=== PATIENT | male | born 1955 | race Caucasian/White ===

== ENCOUNTER 2016-05-06 08:57 | Inpatient (IN) | payer BC, OTHER ==
[2016-05-05 09:39] VITALS: BMI 34.2
--- NOTE | 2016-05-06 11:51 | HP ---
Admitting History and Physical - Admission Chief Complaint: Morbid obesity History of Present Illness: 61 male presents for bariatric surgery History Source: Patient - Past Medical History Pulmonary: Yes: Sleep Apnea Endocrine: Yes: Diabetes Mellitus - Past Surgical History Additional Past Surgical History: Mastoid surgery - Smoking History Smoking history: Current every day smoker Have you smoked in the past 12 months: Yes - Alcohol/Substance Use Hx Alcohol Use: Yes (WEEKENDS) Home Medications - Allergies Allergies/Adverse Reactions: Allergies Allergy/AdvReac Type Severity Reaction Status Date / Time Penicillins Allergy "MOUTH AND Verified 05/05/16 09:40 TONGUE SWELLING" - Home Medications Home Medications: Ambulatory Orders Alfuzosin HCl [Alfuzosin HCl ER] 10 mg PO DAILY 09/22/15 Levofloxacin [Levaquin] 500 mg PO DAILY 05/05/16 Azelastine/Fluticasone [Dymista Nasal [place]] 23 gm NS PRN 05/06/16 Cetirizine HCl 10 mg PO DAILY 05/06/16 Famotidine [Pepcid] 20 mg PO BID #60 tablet 05/06/16 Oxycodone HCl/Acetaminophen [Percocet 5-325 mg Tablet] 1 - 2 tab PO Q6H #28 tab MDD 4 05/06/16 Family Disease History - Family Disease History Family History: Unremarkable Review of Systems - Review of Systems Constitutional: denies: Chills, Fever Neck: reports: No Symptoms Cardiovascular: reports: No Symptoms Respiratory: reports: No Symptoms Gastrointestinal: reports: No Symptoms Genitourinary: reports: No Symptoms Neurological: reports: No Symptoms Pain Intensity: 0 Physical Examination Vital Signs: Vital Signs Temperature 97.8 F 05/06/16 09:32 Pulse Rate 89 05/06/16 09:32 Respiratory Rate 18 05/06/16 09:32 Blood Pressure 140/84 05/06/16 09:32 O2 Sat by Pulse Oximetry (%) 97 05/06/16 09:32 Constitutional: Yes: Calm Neck: Yes: Supple Cardiovascular: Yes: Regular Rate and Rhythm Respiratory: Yes: CTA Bilaterally Gastrointestinal: Yes: Soft, Abdomen, Obese. No: Tenderness Neurological: Yes: Alert, Oriented Problem List - Problems (1) Morbid (severe) obesity due to excess calories Code(s): E66.01 - MORBID (SEVERE) OBESITY DUE TO EXCESS CALORIES Assessment/Plan Robotic laparoscopic possible open vertical sleeve gastrectomy
[2016-05-06] MEDS ORDERED: ROCURONIUM BROMIDE 50 MG/5 ML VIAL ONE ×2 (12:11→12:54)
[2016-05-06] MEDS ORDERED: SUCCINYLCHOLINE CHLORIDE 200 MG/10 ML VIAL ONE (12:11)
[2016-05-06] MEDS ORDERED: MIDAZOLAM HCL 2 MG/2 ML SINGLE DOSE VIAL ONE (12:11)
[2016-05-06] MEDS ORDERED: PROPOFOL 20 ML ONE (12:11)
[2016-05-06] MEDS ORDERED: BUPIVACAINE HCL/PF 0.5% (5MG/ML) 10 ML VIAL ONE ×2 (12:18→13:59)
[2016-05-06] MEDS ORDERED: CLINDAMYCIN PHOSPHATE 900 MG/6 ML VIAL IVPB ONE (12:50)
[2016-05-06] MEDS ORDERED: CLINDAMYCIN PHOSPHATE 600 MG/4 ML VIAL ONE (13:05)
[2016-05-06] MEDS ORDERED: PHENYLEPHRINE HCL 10 MG/1 ML SINGLE DOSE VIAL ONE (13:29)
[2016-05-06] MEDS ORDERED: SODIUM CHLORIDE 0.9% P/F 10 ML VIAL IJ ONE (13:30)
[2016-05-06] MEDS ORDERED: ePHEDrine SULFATE 50 MG/1 ML AMPULE ONE (13:51)
[2016-05-06] MEDS ORDERED: HYDROmorphone HCL/PF 1 MG/ML VIAL (FOR PYXIS CHARGING ONLY) ONE (14:14)
[2016-05-06] MEDS ORDERED: HYDROmorphone HCL CARPU-JECT 2 MG/1 ML DISP.SYRIN ONE ×2 (15:18→16:53)
[2016-05-06] MEDS: HYDROmorphone HCL CARPU-JECT 1 MG/1 ML DISP.SYRIN IVPUSH PRN ×4 (15:20→15:50)
[2016-05-06] MEDS ORDERED: ACETAMINOPHEN INJECTION 100 ML IVPB ONE (15:52)
[2016-05-06] MEDS ORDERED: METOCLOPRAMIDE HCL INJECTION 10 MG/2 ML VIAL ONE (15:52)
[2016-05-06 15:54] LABS: MCH 31.1 pg (25.7-33.7); MCHC 34.2 g/dl (32.0-35.9); MEAN CELL VOLUME 90.9 fl (80-96); MEAN PLT VOLUME 8.8 fl (7.5-11.1); PLATELET COUNT 187 K/MM3 (134-434); RDW 13.4 % (11.9-15.9); WHITE BLOOD COUNT 10.6 K/mm3 (4.0-10.0)
[2016-05-06] MEDS: ACETAMINOPHEN 1000 MG/100 ML VIAL (NON FORMULARY) IVPB SCH ×2 (16:00→22:01)
[2016-05-06] MEDS: METOCLOPRAMIDE HCL INJECTION 10 MG/2 ML VIAL IVPB SCH ×2 (16:30→20:47)
[2016-05-06 16:38] LABS: ALBUMIN 3.6 g/dl (3.4-5.0); ALK PHOS 59 U/L (45-117); ANION GAP 9 (8-16); BILIRUBIN,TOTAL 0.6 mg/dL (0.2-1.0); CALCIUM 8.8 mg/dL (8.5-10.1); CO2 29 mmol/L (21-32); CREATININE 1.1 mg/dL (0.7-1.3); GLUCOSE,RANDOM 129 mg/dL (74-106); SGOT/AST 69 U/L (15-37); SGPT/ALT 93 U/L (12-78); TOT PROT 6.6 g/dl (6.4-8.2)
[2016-05-06] MEDS: HYDROmorphone HCL CARPU-JECT 1 MG/1 ML DISP.SYRIN IVPB PRN (17:00)
[2016-05-06] MEDS: SODIUM CHLORIDE 1,000 ML IV SCH (18:21)
[2016-05-06] MEDS: ONDANSETRON 4 MG/2 ML VIAL IVPB SCH ×2 (19:28→23:12)
[2016-05-06] MEDS: FAMOTIDINE 20 MG/50 ML IVPB 50 ML IVPB SCH (22:24)
[2016-05-06] MEDS: ENOXAPARIN NA (PORCINE) 40 MG/0.4 ML DISP.SYRIN SQ SCH (22:26)
[2016-05-07] MEDS: HYDROmorphone HCL CARPU-JECT 1 MG/1 ML DISP.SYRIN IVPB PRN ×3 (00:14→10:04)
[2016-05-07] MEDS: METOCLOPRAMIDE HCL INJECTION 10 MG/2 ML VIAL IVPB SCH ×3 (03:09→14:28)
[2016-05-07] MEDS: ONDANSETRON 4 MG/2 ML VIAL IVPB SCH ×4 (03:17→14:28)
[2016-05-07] MEDS: ACETAMINOPHEN 1000 MG/100 ML VIAL (NON FORMULARY) IVPB SCH ×2 (03:43→11:03)
[2016-05-07] MEDS: SODIUM CHLORIDE 1,000 ML IV SCH ×2 (05:00→17:11)
--- NOTE | 2016-05-07 07:56 | PN ---
Progress Note, Physician Chief Complaint: Pt. pain controlled, resting comforatbly. No GA complaints. - Current Medication List Current Medications: Active Medications Acetaminophen (Ofirmev Injection -) 1,000 mg IVPB Q6H-IV ASHLYN Stop: 05/07/16 09:01 Last Admin: 05/07/16 03:43 Dose: Not Given Enoxaparin Sodium (Lovenox -) 40 mg SQ BID ASHLYN Last Admin: 05/06/16 22:26 Dose: 40 mg Hydromorphone HCl (Dilaudid Injection -) 1 mg IVPB Q3H PRN PRN Reason: PAIN Last Admin: 05/07/16 06:34 Dose: 1 mg Hydromorphone HCl (Dilaudid Injection -) 0.5 mg IVPUSH [id number] PRN PRN Reason: PAIN Stop: 05/09/16 15:20 Last Admin: 05/06/16 15:50 Dose: 0.5 mg Famotidine/Sodium Chloride (Pepcid 20 Mg Premixed Ivpb -) 50 mls @ 100 mls/hr IVPB BID [facility] Last Admin: 05/06/16 22:24 Dose: 100 mls/hr Sodium Chloride (Normal Saline -) 1,000 mls @ 150 mls/hr IV ASDIR [facility] Last Admin: 05/07/16 05:00 Dose: 150 mls/hr Metoclopramide HCl (Reglan Injection -) 10 mg IVPB Q6H-IV ASHLYN Last Admin: 05/07/16 03:09 Dose: 10 mg Ondansetron HCl (Zofran Injection) 4 mg IVPB Q4H [facility] Last Admin: 05/07/16 06:38 Dose: 4 mg - Objective Vital Signs: Vital Signs Temperature 97.8 F 05/07/16 06:00 Pulse Rate 82 05/07/16 06:00 Respiratory Rate 20 05/07/16 06:00 Blood Pressure 157/94 05/07/16 06:00 O2 Sat by Pulse Oximetry (%) 97 05/06/16 21:00 Constitutional: Yes: Well Nourished, No Distress, Calm Musculoskeletal: Yes: WNL Neurological: Yes: WNL, Alert, Oriented ...Motor Strength: WNL Assessment/Plan POD#1 s/p Robotic Gastric Sleeve under GA. Doing well. D/C from anesthesia care.
[2016-05-07 08:16] LABS: MCH 31.2 pg (25.7-33.7); MCHC 34.1 g/dl (32.0-35.9); MEAN CELL VOLUME 91.5 fl (80-96); MEAN PLT VOLUME 8.8 fl (7.5-11.1); PLATELET COUNT 161 K/MM3 (134-434); RDW 13.5 % (11.9-15.9)
[2016-05-07 08:44] LABS: ALBUMIN 3.4 g/dl (3.4-5.0); ALK PHOS 52 U/L (45-117); ANION GAP 11 (8-16); BILIRUBIN,TOTAL 0.9 mg/dL (0.2-1.0); CALCIUM 8.2 mg/dL (8.5-10.1); CO2 25 mmol/L (21-32); GLUCOSE,RANDOM 100 mg/dL (74-106); SGOT/AST 71 U/L (15-37); SGPT/ALT 90 U/L (12-78); TOT PROT 6.5 g/dl (6.4-8.2)
--- NOTE | 2016-05-07 08:50 | SPEC ---
DATE OF OPERATION: 05/06/2016 SURGEON: Fox Dyer MD LANDING SIGNAL OFFICER: Ryan Soares MD PREOPERATIVE DIAGNOSES: Morbid obesity, sleep apnea, borderline diabetes. POSTOPERATIVE DIAGNOSES: Morbid obesity, sleep apnea, borderline diabetes. PROCEDURE: Robotic vertical sleeve gastrectomy. SPECIMEN: Greater curvature of the stomach. ESTIMATED BLOOD LOSS: 30 mL. DRAINS: None. ANESTHESIA: GET. REASON FOR PROCEDURE: This is a 61-year-old gentleman who presented to the office for evaluation with bariatric surgery. After discussing different options, he decided to proceed with a robotic laparoscopic, possible open vertical sleeve gastrectomy. RISKS AND BENEFITS: After describing the different options for weight loss management, the patient decided to proceed with a laparoscopic, possible open vertical sleeve gastrectomy. The patient was seen by the respective subspecialties and cleared for surgery. The risks and benefits of the procedure were explained. These included bleeding, infection, hernia, CT, DVT, PE, injury to surrounding structures including the liver, colon, bowel, spleen, esophagus, vessel injury, nerve injury, weight regain, gastric leak, staple line leak, sleeve leak, obstruction, vitamin deficiency, hair loss, and as some of the possible complications. The patient understood and signed informed consent. DESCRIPTION OF PROCEDURE: The patient was placed supine on the operating room table. The patient underwent general endotracheal intubation. A Jade catheter was inserted. The arms were brought out at 90 degrees and secured. A foot board was placed, and the legs were secured laterally with padding. The abdomen was prepped and draped in the usual sterile fashion. A timeout was performed. An incision was made in the left upper quadrant and a Veress needle inserted. Pneumoperitoneum was established. Subsequently, the Veress needle was removed, and a 12-mm trocar was placed. The laparoscopic camera was inserted, and inspection of the abdominal cavity was performed. An incision was made in the supraumbilical region and a 15-mm trocar placed under direct visualization. A 5-mm trocar was then placed in the right upper quadrant and a 5-mm trocar placed below the left subcostal margin. A stab wound was made in the subxiphoid area and a Luzmaria clamp inserted and removed to dilate the tract. A Ainsley liver retractor was inserted. The post was secured at the bedside by the nursing staff. The patient was placed in steep reverse Trendelenburg position. The Ainsley liver retractor was used to secure the liver towards the anterior abdominal wall. The pylorus was identified and 6 cm proximal to it the lesser sac was entered using the LigaSure device. All lateral attachments to the greater curvature of the stomach including the short gastric vessels were ligated using the LigaSure device toward the gastrosplenic and gastrophrenic ligaments. Once this was done in its entirety, it was confirmed that all tubes within the nasal or oropharyngeal cavity including a temperature probe was removed by Anesthesia. The bougie was then inserted by Anesthesia. Transection of the stomach was then begun staying adjacent to the bougie but away from the angularis. Transection of the stomach was performed near the portion of the stomach where the lesser sac was entered. Two laparoscopic Endo-HANNAH black loads were used at this location. Laparoscopic Endo-HANNAH purple loads were then used for the remainder of the transection until the greater curvature of the stomach was fully transected. This was done staying close to the bougie. Care was taken to stay away from the angle of His cephalad. The staple line was then inspected. Hemostasis was identified. A leak test was then performed. The stomach was clamped distally to the staple line. Irrigation solution was placed in the left upper quadrant and air insufflated by Anesthesia into the sleeve. No leaks were identified, and no obstruction was identified. This was done throughout the entirety of the staple line. At this point, the irrigation solution was suctioned and again hemostasis noted. The 15-mm supraumbilical trocar was then removed and the specimen removed from the site using a sponge stick portillo. The specimen was inspected and a Veress needle inserted. The specimen insufflated adequately, and no leak was identified. The staple line was noted to be intact. A Jhonny-James device was then used to temporarily close the fascia with a 0 Vicryl suture at this site. The 15-mm trocar was then reinserted and the 12-mm trocar in the left upper quadrant removed. The fascia at this site was then closed using a Jhonny-James device with a 0 Vicryl suture. Again, hemostasis was noted. The Ainsley liver retractor was then removed under direct visualization. Pneumoperitoneum was desufflated, and the fascial sutures were secured. Hemostasis was noted at all incision sites, and Marcaine was injected at all incision sites. All incision sites were closed using 4-0 Biosyn. Sterile dressings were applied. The patient tolerated the procedure well and was transferred to the recovery room in stable condition with the Jade catheter intact. The patient was transferred to telemetry for further monitoring. FOX DYER M.D. [id number]
[2016-05-07] MEDS ORDERED: PT OWN MED DRAWER 7, Y5N ONE (09:57)
[2016-05-07] MEDS: ENOXAPARIN NA (PORCINE) 40 MG/0.4 ML DISP.SYRIN SQ SCH (10:05)
[2016-05-07] MEDS: FAMOTIDINE 20 MG/50 ML IVPB 50 ML IVPB SCH (10:07)
[2016-05-07] MEDS ORDERED: SODIUM CHLORIDE 1,000 ML IV SCH (10:45)
--- NOTE | 2016-05-07 12:26 | PN ---
[id number], no emesis. Has abd pain with movement. Jade catheter removed. Vital Signs Period Temp Pulse Resp BP Sys/Florian Pulse Ox Last 24 Hr 97 F-98 F 78-98 10-20 130-163/62-99 95-97 uop- 650 PE: GEN: appears comfortable CV: RRR Lungs: CTA b/l ABD: soft, slight distended, inc tenderness. Inc c/d/i with bandaid. LE: no calf tenderness or swelling noted b/l CBC, BMP 05/07/16 06:07 05/07/16 06:07 UGI-No evidence of leak/obstruction A/P: 61 yo male s/p robotic vertical gastrectomy UGI negative-begin bariatric stage 1 diet OOB to chair/incentive spirometer DVT PPX with SCD/PRESTON/ambulate Pain management as needed D/w Dr. Dyer <Annabel Amaro - Last Filed: 05/07/16 12:41> - Note Progress Note: Agree POD 1 Robotic vertical sleeve gastrectomy Pain controlled AVSS Abd soft WBc 10 H/H stable UGi- no leak/obstruction 2 ounces clears D/C in am <Abdi Dyer - Last Filed: 05/07/16 17:55> Problem List - Problems (1) Morbid (severe) obesity due to excess calories Code(s): E66.01 - MORBID (SEVERE) OBESITY DUE TO EXCESS CALORIES <Abdi Dyer - Last Filed: 05/07/16 17:55>
[2016-05-07] MEDS: oxyCODONE HCL 5 MG TABLET PO PRN ×2 (14:26→18:49)
[2016-05-07] MEDS: ACETAMINOPHEN 325 MG TABLET (FP) PO PRN ×2 (14:27→18:51)
--- NOTE | 2016-05-07 17:57 | DS ---
Physical Examination Vital Signs: Vital Signs Temperature 97.9 F 05/07/16 15:57 Pulse Rate 86 05/07/16 17:37 Respiratory Rate 18 05/07/16 15:57 Blood Pressure 129/73 05/07/16 15:57 O2 Sat by Pulse Oximetry (%) 96 05/07/16 17:37 Constitutional: Yes: Calm Cardiovascular: Yes: Regular Rate and Rhythm Respiratory: Yes: CTA Bilaterally Gastrointestinal: Yes: Soft Extremities: Yes: WNL Wound/Incision: Yes: Clean/Dry Neurological: Yes: Alert, Oriented Labs: CBC, BMP 05/07/16 06:07 05/07/16 06:07 Discharge Summary Reason For Visit: MORBID OBESITY Current Active Problems Morbid (severe) obesity due to excess calories (Acute) Procedures: Principal: Robotic vertical sleeve gastrectomy Condition: Stable - Instructions Diet, Activity, Other Instructions: Lara Dyer M.D. [address] [place] [address] Robotic, Bariatric and General Surgery Postoperative Instructions for Bariatric Surgery Activity: Resume normal everyday activity as tolerated. You may walk and climb stairs without any limitation. We encourage you to walk as often as you can Do not lift anything more than 10 pounds for 8 weeks. At that time, you can return to full activity, including the gym, without limitation. Do not drive a motor vehicle while taking prescribes narcotic pain medication. Wound Care: If you have a bandage in place, leave it on for 3 days. At that time you may remove the outer bandage. If there are strips of tape on the skin after removing the outer bandage, leave them in place. They will fall off by themselves. Do not remove them. If there is clear glue on the skin after removing the outer bandage, leave it in place. Do not pick at it or peel it off. You may shower after taking the outer bandage off, 3 days after your surgery. If incisions become red, warm or open, please call the office. Diet: Continue a sugar-free, non-carbonated clear liquid diet three times a day for the first week-Stage 1 diet. In addition, you should drink 8 ounces of water every hour. When drinking, sips should be slow and steady, not large and quick. After the first week, call the office to be advanced to the next dietary stage. Do not advance stages until instructed by , or one of the Nurse Practitioners. You diet will be advanced over the phone each week. Medications/Pain Management: You may resume previous medications unless told otherwise. The pills may be swallowed whole or broken if scored. You may take the prescribed narcotic pain medication as needed. If the narcotic medication is not needed for pain control, you may take Tylenol. Avoid all other pain medications including Advil, Ibuprofen, Motrin, Aspirin, Naprosyn, Aleve, Celebrex. You will receive Pepcid. Please take this twice a day as prescribed. Dizziness,Headaches/Gas Pain: Make sure you are getting enough fluids daily. Patients on diuretics or water pills may need medication adjusted. Some fluids such as broth or Gatorade may help. Gas pains are common in the first few weeks after surgery. At times they can be worse than surgical pain. Walking can help. You can also use Mylanta, Maalox, or Gas-X. Vomiting/Nausea: This may occur if you eat too fast, don't chew, or eat too much. Go back to fluids. If the vomiting or nausea persists, call the office. Constipation/Diarrhea: You may experience a change in bowel habits. Many things affect this, including a decrease in food intake, not enough fluid and taking pain medication. Some people experience diarrhea after the barium swallow in x-ray. If either persist, call the office. Follow up: Call the office at [phone] for an appointment 2 weeks after you surgical procedure. Disposition: HOME - Home Medications Comprehensive Discharge Medication List: Ambulatory Orders Alfuzosin HCl [Alfuzosin HCl ER] 10 mg PO DAILY 09/22/15 Levofloxacin [Levaquin] 500 mg PO DAILY 05/05/16 Azelastine/Fluticasone [Dymista Nasal [place]] 23 gm NS PRN 05/06/16 Cetirizine HCl 10 mg PO DAILY 05/06/16 Famotidine [Pepcid] 20 mg PO BID #60 tablet 05/06/16 Oxycodone HCl/Acetaminophen [Percocet 5-325 mg Tablet] 1 - 2 tab PO Q6H #28 tab MDD 4 05/06/16
[2016-05-07 18:52] VITALS: BP 139/75; PULSE 85; TEMP 97.3
[2016-05-08] MEDS ORDERED: TAMSULOSIN HCL 0.4 MG CAP.ER.24H (FP) PO SCH (08:30)
--- NOTE | 2016-05-10 10:46 | PATH ---
Surgical Pathology Report Patient Name: BLANCO OQUENDO Med. Rec. #: [id number] /Age/Gender: 1955 (Age: 61) / M Account: [id number] Location: 4 W TELEMETRY U Taken: 05/06/2016 Received: 05/07/2016 Reported: 05/10/2016 Physicians: Abdi Dyer M.D. Specimen(s) Received GREATER CURVATURE OF STOMACH Clinical History Morbid obesity Final Diagnosis STOMACH, GREATER CURVATURE, SLEEVE GASTRECTOMY: PORTION OF UNREMARKABLE STOMACH. Electronically Signed Haider Junior M.D. Gross Description Received in formalin, labeled "greater curvature of stomach," is a 142 gram, 20.0 x 6.0 x 3.5 cm. portion of stomach with a stapled margin of resection. The serosa is isabel-curtis with minimal attached fat. The mucosa is isabel-pink with focally flattened folds. No mucosal masses are identified. Public Health Outreach Worker sections are submitted in one cassette. /05/07/2016 saudi05/07/2016
== END 2016-05-07 20:57 | disposition home or self-care (01) | DRG 621 ==
LOC: JASU-SURG 08:57 → JASUSAT 08:57 → JSAMEDAYSX 09:56 → J4W 17:55
PROVIDERS: ADMIT Surgery; ATTEND Surgery
PROC: 8E0W3CZ Robotic Assisted Procedure of Trunk Region, Percutaneous Approach (ICD-10-PCS; 2016-05-06)
PROC: 0DB64Z3 Excision of Stomach, Percutaneous Endoscopic Approach, Vertical (ICD-10-PCS; principal; 2016-05-06 11:00)
DX: E66.01 Morbid (severe) obesity due to excess calories (principal); Z68.34 Body mass index [BMI] 34.0-34.9, adult; G47.30 Sleep apnea, unspecified; F17.210 Nicotine dependence, cigarettes, uncomplicated
CPT/HCPCS: 36415; 74241-TC; 80053; 85027; 88305-TC; 94010; 94760

== ENCOUNTER 2023-04-25 10:26 | Inpatient (IN) | payer OTHER, MEDICARE ==
[2023-04-25] MEDS ORDERED: ACETAMINOPHEN INJECTION 100 ML IVPB ONE (11:45)
[2023-04-25] MEDS ORDERED: ONDANSETRON 4 MG/2 ML VIAL ONE (11:45)
[2023-04-25] MEDS: ACETAMINOPHEN 1000 MG/100 ML BAG IVPB ONE (11:55)
[2023-04-25] MEDS: ONDANSETRON 4 MG/2 ML VIAL IVPUSH ONE (11:55)
[2023-04-25 12:04] LABS: BASO % 0.2 % (0-2.0); HEMATOCRIT 48.4 % (35.4-49); HEMOGLOBIN 16.6 GM/dL (11.7-16.9); LYMPH % 12.6 % (8-40); MCH 34.6 pg (25.7-33.7); MCHC 34.2 g/dl (32.0-35.9); MEAN CELL VOLUME 101.1 fl (80-96); MEAN PLT VOLUME 7.8 fl (7.5-11.1); MONO % 10.2 % (3.8-10.2); PLATELET COUNT 157 10^3/uL (134-434); RBC 4.79 M/mm3 (4.00-5.60); RDW 13.5 % (11.9-15.9); WHITE BLOOD COUNT 5.3 K/mm3 (4.0-10.0)
[2023-04-25 12:12] LABS: INR 1.01 (0.83-1.09); PROTHROMBIN TIME (PATIENT) 11.7 SEC (9.7-13.0)
[2023-04-25 12:14] LABS: ACTIVATED PTT 31.2 SECONDS (25.2-36.5)
[2023-04-25 12:44] LABS: POTASSIUM 4.2 mmol/L (3.5-5.1)
[2023-04-25 12:46] LABS: CALCIUM 9.2 mg/dL (8.5-10.1)
[2023-04-25 12:47] LABS: ALBUMIN 3.8 g/dl (3.4-5.0); BLOOD UREA NITROGEN 10.3 mg/dL (7-18)
[2023-04-25 12:49] LABS: CREATININE 0.9 mg/dL (0.55-1.3)
[2023-04-25 12:51] LABS: BILIRUBIN,TOTAL 1.3 mg/dL (0.2-1); TOT PROT 7.2 g/dl (6.4-8.2)
[2023-04-25] MEDS ORDERED: METOCLOPRAMIDE HCL INJECTION 10 MG/2 ML VIAL ONE (15:55)
[2023-04-25] MEDS: METOCLOPRAMIDE HCL INJECTION 10 MG/2 ML VIAL IVPUSH ONE (16:01)
[2023-04-26 04:11] VITALS: BMI 23.6
[2023-04-26 07:12] LABS: BASO % 0.1 % (0-2.0); EOS % 1.5 % (0-4.5); HEMATOCRIT 49.5 % (35.4-49); HEMOGLOBIN 16.9 GM/dL (11.7-16.9); LYMPH % 3.1 % (8-40); MCH 34.6 pg (25.7-33.7); MCHC 34.2 g/dl (32.0-35.9); MEAN CELL VOLUME 101.1 fl (80-96); MEAN PLT VOLUME 8.2 fl (7.5-11.1); MONO % 9.6 % (3.8-10.2); NEUT % 85.7 % (42.8-82.8); PLATELET COUNT 146 10^3/uL (134-434); RBC 4.89 M/mm3 (4.00-5.60); RDW 13.6 % (11.9-15.9); WHITE BLOOD COUNT 7.6 K/mm3 (4.0-10.0)
[2023-04-26 07:35] LABS: POTASSIUM 4.3 mmol/L (3.5-5.1)
[2023-04-26 07:43] LABS: ALBUMIN 3.4 g/dl (3.4-5.0); CALCIUM 8.7 mg/dL (8.5-10.1); PHOSPHOROUS 2.4 mg/dL (2.5-4.9)
[2023-04-26 07:44] LABS: TOT PROT 6.9 g/dl (6.4-8.2)
[2023-04-26 07:45] LABS: BILIRUBIN,TOTAL 1.2 mg/dL (0.2-1)
[2023-04-26 07:46] LABS: CREATININE 0.9 mg/dL (0.55-1.3)
[2023-04-26] MEDS ORDERED: ONDANSETRON 4 MG/2 ML VIAL IM PRN (08:29)
[2023-04-26] MEDS: PANTOPRAZOLE SODIUM 40 MG VIAL IVPUSH SCH (10:34)
[2023-04-26] MEDS: ACETAMINOPHEN 1000 MG/100 ML BAG IVPB PRN (10:34)
[2023-04-26] MEDS: ONDANSETRON 4 MG/2 ML VIAL IVPB PRN (10:34)
[2023-04-26] MEDS: D5-1/2NS+20 MEQ KCL - 20 MEQ/1,000 ML INFUS.BAG IV SCH (10:35)
[2023-04-26] MEDS: ONDANSETRON 4 MG/2 ML VIAL IVPUSH PRN (11:13)
[2023-04-27 10:50] VITALS: BP 134/77; PULSE 72; RESP 16; TEMP 97.9
== END 2023-04-27 10:54 | disposition home or self-care (01) | DRG 90 ==
LOC: JER 10:26 → JERBED 15:42 → OBSVTOIN 16:09 → J4W 20:45
PROVIDERS: ADMIT Family Medicine; ATTEND Family Medicine
DX: S06.0XAA Concussion with loss of consciousness status unknown, initial encounter (principal); N40.0 Benign prostatic hyperplasia without lower urinary tract symptoms; R26.0 Ataxic gait; R51.9 Headache, unspecified; R11.10 Vomiting, unspecified; E11.9 Type 2 diabetes mellitus without complications; F10.90 Alcohol use, unspecified, uncomplicated; W17.89XA Other fall from one level to another, initial encounter; Y92.098 Other place in other non-institutional residence as the place of occurrence of the external cause; Y99.9 Unspecified external cause status
CPT/HCPCS: 36415; 70450-TC; 70496-TC; 70498-TC; 70551-TC; 71045-TC-FY; 72125-TC; 72170-TC-FY; 80053; 82607; 83036; 83735; 84100; 84443; 84484; 85025; 85610; 85730; 93005; 93010; 93306-TC; 99285-25; G0378; J0131